=== PATIENT | male | born 1950 | race Caucasian/White ===

== ENCOUNTER 2020-06-25 17:29 | Outpatient (CLI) | payer OTHER | END 2020-06-25 17:30 | disposition home or self-care (01) | LOC: COV 17:29 | PROVIDERS: ATTEND Family Medicine | DX: R53.83 Other fatigue (principal); R19.7 Diarrhea, unspecified; R09.81 Nasal congestion; Z20.828 Contact with and (suspected) exposure to other viral communicable diseases ==

== ENCOUNTER 2020-10-16 13:25 | Emergency (ER) | payer OTHER ==
[2020-10-16 13:35] VITALS: BP 166/64
[2020-10-16] MEDS ORDERED: TETANUS/DIPHTHERIA/PERTUSSIS 0.5 ML SYRINGE IM ONE (14:27)
[2020-10-16] MEDS ORDERED: BACITRACIN ZINC OINT 1 PACKET TOP STA (14:37)
--- NOTE | 2020-10-16 14:37 | ED Physician Documentation ---
History of Present Illness - Stated complaint Stated Complaint: HEAD INJURY - Chief complaint Chief Complaint: Laceration - Additonal information Additional information: 69-year-old male who works for the [employer] [facility] presents the emergency department for a forehead laceration sustained earlier this afternoon when he was moving a ladder. He did not realize that there was a hammer on one of the steps. It fell down and struck him in the forehead. He did not have any loss of consciousness. He has a 2 cm vertical incision bleeding is well controlled. Unknown last tetanus. Gentleman is not anticoagulated. Review of Systems Constitutional: reports: Reviewed and negative Eyes: denies: Loss of vision, Decreased vision Ears: denies: Loss of hearing, Ear pain, Drainage/discharge Nose: denies: Rhinorrhea / runny nose, Congestion Throat: reports: Reviewed and negative Cardiac: reports: Reviewed and negative Respiratory: reports: Reviewed and negative GI: reports: Reviewed and negative : reports: Reviewed and negative Skin: reports: Laceration (s) (forehead) Musculoskeletal: reports: Reviewed and negative Neurologic: reports: Reviewed and negative Psychiatric: reports: Reviewed and negative PD PAST MEDICAL HISTORY - Past Medical History Cardiovascular: Hypertension Respiratory: None Endocrine/Autoimmune: None GI: None : None HEENT: None Psych: None Musculoskeletal: None Derm: None - Past Surgical History Past Surgical History: No - Present Medications Home Medications: Ambulatory Orders Medication Instructions Recorded Confirmed Lisinopril 20 mg PO DAILY 05/29/13 10/16/20 Felodipine [Felodipine ER] 10 mg PO DAILY 03/24/15 10/16/20 - Allergies Allergies/Adverse Reactions: Allergies Allergy/AdvReac Type Severity Reaction Status Date / Time No Known Drug Allergies Allergy Verified 10/16/20 13:32 - Social History Does the pt smoke?: No Smoking Status: Former smoker Does the pt drink ETOH?: Yes Does the pt have substance abuse?: No - Immunizations Immunizations are current?: Yes - POLST Patient has POLST: No PD ED PE EXPANDED - General General: Alert, No acute distress, Well developed/nourished - HEENT HEENT: Head injury, PERRL, Ears normal, Moist mucous membranes, Tongue laceration (Negative raccoon eyes negative martin sign), Other. No: Atraumatic - Eyes Eyes: PERRL - Neck Neck: Supple w/out meningeal sx. No: Adenopathy - Cardiac Cardiac: Regular Rate, Regular Rhythm, Radial strong equal, Pedal strong equal, Cap refill < 2 sec - Respiratory Respiratory: Clear to ausultation lazarus. No: Distress, Labored - Abdomen Abdomen: Normal Bowel sounds. No: Tender to palpation - Derm Derm: Normal color, Warm and dry - Extremities Extremities: Normal. No: Deformity, Tenderness - Neuro Neuro: Alert and Oriented X 3, CNII-XII intact, Normal gait, Normal finger nose, Normal speech. No: Confused, Disoriented - GCS Eye Opening: Spontaneous Motor: Obeys Commands Verbal: Oriented Total: 15 Results - Vitals Vitals: Vital Signs - 24 hr 10/16/20 13:33 Temperature 36.8 C Heart Rate 74 Respiratory 18 Rate Blood Pressure 166/64 H O2 Saturation 100 Oxygen O2 Source Room air Procedures - Laceration (location) forehead Length in cm: 2.5 Wound type: Linear Neurovascular status: Sensory intact Wound preparation: Irrigated copiously NS Skin layer closure: Kelly (4) Other: Patient tolerated well, No complications, Tetanus booster given PD MEDICAL DECISION MAKING - ED course Complexity details: d/w patient ED course: 69-year-old male presents emergency department for evaluation of forehead laceration sustained when a hammer fell off a ladder striking him in the head. There was no loss consciousness. Gentleman is not anticoagulated. He had a 2.5 cm vertical forehead incision that was easily closed with 4 kelly. Tetanus booster was given today. This gentleman does not have any secondary findings of a skull fracture including martin sign or raccoon eyes. Routine wound care emergent return precautions were discussed L&I ppw completed. [place] #[id number] Departure - Departure Disposition: 01 Home, Self Care Clinical Impression: Laceration of forehead without complication Qualifiers: Encounter type: initial encounter Qualified Code(s): S01.81XA - Laceration without foreign body of other part of head, initial encounter Condition: Stable Record reviewed to determine appropriate education?: Yes Comments: Your kelly should be removed in 5-7 days. In 24 hours you may remove the dressing wash gently with warm soap and water, apply any antibiotic ointment and a simple bandage. Your tetanus is up-to-date. Please attempt to keep your wound clean and dry. Do not submerge it in dirty dishwater or bath water. Return to the emergency department if you have any concerns of infection such as redness, fevers milky drainage increased pain.
== END 2020-10-16 14:44 | disposition home or self-care (01) ==
LOC: ED 13:25
DX: S01.81XA Laceration without foreign body of other part of head, initial encounter (principal); W20.8XXA Other cause of strike by thrown, projected or falling object, initial encounter; Y99.0 Civilian activity done for income or pay; I10 Essential (primary) hypertension; Z87.891 Personal history of nicotine dependence
CPT/HCPCS: 1040M; 12011; 99281; 99282

== ENCOUNTER 2020-11-07 08:00 | Outpatient (CLI) | payer OTHER ==
[2020-11-07 13:16] LABS: BASOPHILS % (AUTO) 0.6 %; EOSINOPHILS # (AUTO) 0.5 10^3/uL (0.0-0.7); EOSINOPHILS % (AUTO) 9.6 %; HCT - HEMATOCRIT 43.9 % (42.0-52.0); HGB - HEMOGLOBIN 14.5 g/dL (14.0-18.0); LYMPHOCYTES # (AUTO) 1.4 10^3/uL (1.5-3.5); LYMPHOCYTES % (AUTO) 27.6 %; MEAN CORPUSCULAR HEMOGLOBIN 31.6 pg (27.0-31.0); MEAN CORPUSCULAR VOLUME 95.6 fL (80.0-94.0); MONOCYTES # (AUTO) 0.5 10^3/uL (0.0-1.0); NEUTROPHILS # (AUTO) 2.5 10^3/uL (1.5-6.6); PLT - PLATELET COUNT 258 10^3/uL (130-450); RED BLOOD COUNT 4.59 10^6/uL (4.70-6.10); RED CELL DISTRIBUTION WIDTH 12.8 % (12.0-15.0); WHITE BLOOD COUNT 4.9 x10^3/uL (4.8-10.8)
[2020-11-07 13:25] LABS: ALBUMIN 4.2 g/dL (3.2-5.5); ALBUMIN/GLOBULIN RATIO 1.6 (1.0-2.2); ALKALINE PHOSPHATASE 35 IU/L (42-121); ALT ALANINE AMINOTRANSFERASE 22 IU/L (10-60); AST ASPARTATE AMINOTRANSFERASE 18 IU/L (10-42); BILIRUBIN,TOTAL 0.6 mg/dL (0.2-1.0); BUN - BLOOD UREA NITROGEN 19 mg/dL (6-20); CALCIUM 9.2 mg/dL (8.5-10.3); CARBON DIOXIDE - CO2 28 mmol/L (21-32); CHLORIDE 105 mmol/L (101-111); CHOLESTEROL 207 mg/dL; CREATININE 0.8 mg/dL (0.6-1.2); GFR - MDRD 96 (>89); GLUCOSE 109 mg/dL (70-100); HDL CHOLESTEROL 70 mg/dL; LDL CHOLESTEROL,CALCULATED 121 mg/dL; LDL/HDL RATIO 1.7 (<3.6); POTASSIUM 4.5 mmol/L (3.5-5.0); SODIUM 140 mmol/L (135-145); TOTAL PROTEIN 6.9 g/dL (6.7-8.2); TRIGLYCERIDES 81 mg/dL; VLDL CHOLESTEROL 16 mg/dL
== END 2020-11-07 23:59 | disposition home or self-care (01) ==
LOC: LAB.WCP 08:00
PROVIDERS: ATTEND Family Medicine
DX: I10 Essential (primary) hypertension (principal); Z12.5 Encounter for screening for malignant neoplasm of prostate
CPT/HCPCS: 36415; 80053; 80061; 83721; 84153; 85025

== ENCOUNTER 2022-07-30 12:39 | Outpatient (CLI) | payer OTHER | END 2022-07-30 12:40 | disposition home or self-care (01) | LOC: MAC.INF 12:39 | PROVIDERS: ATTEND Nurse Practitioner | DX: R00.2 Palpitations (principal); R07.9 Chest pain, unspecified | CPT/HCPCS: 93246 ==

== ENCOUNTER 2022-07-30 13:30 | Outpatient (CLI) | payer OTHER ==
--- NOTE | 2022-07-30 15:37 | XRAY Report ---
PROCEDURE: Chest 2 View X-Ray INDICATIONS: CHEST PAIN TECHNIQUE: 2 views of the chest were acquired. COMPARISON: 09/30/2015 FINDINGS: Surgical changes and devices: Device overlying the sternum. Lungs and pleura: No pleural effusions or pneumothorax. Lungs are clear. Mediastinum: Mediastinal contours are normal. Heart size is normal. Bones and chest wall: No suspicious bony abnormalities. Soft tissues appear unremarkable. IMPRESSION: No acute radiographic abnormality. Reviewed by: Hilton Zarate MD on 07/30/2022 3:35 PM PST Approved by: Hilton Zarate MD on 07/30/2022 3:35 PM PST Station ID: [id number]
== END 2022-07-30 13:31 | disposition home or self-care (01) ==
LOC: DI 13:30
PROVIDERS: ATTEND Nurse Practitioner
DX: R07.89 Other chest pain (principal); R07.9 Chest pain, unspecified

== ENCOUNTER 2022-09-11 08:51 | Outpatient (CLI) | payer OTHER ==
[2022-09-11 09:09] LABS: BASOPHILS % (AUTO) 0.5 %; EOSINOPHILS # (AUTO) 0.3 10^3/uL (0.0-0.7); HCT - HEMATOCRIT 45.6 % (42.0-52.0); HGB - HEMOGLOBIN 14.7 g/dL (14.0-18.0); LYMPHOCYTES # (AUTO) 1.6 10^3/uL (1.5-3.5); LYMPHOCYTES % (AUTO) 28.1 %; MEAN CORPUSCULAR HEMOGLOBIN 30.3 pg (27.0-31.0); MEAN CORPUSCULAR HGB CONC 32.2 g/dL (32.0-36.0); MONOCYTES # (AUTO) 0.6 10^3/uL (0.0-1.0); MONOCYTES % (AUTO) 11.4 %; NEUTROPHILS % (AUTO) 53.8 %; PLT - PLATELET COUNT 242 10^3/uL (130-450); RED BLOOD COUNT 4.85 10^6/uL (4.70-6.10); RED CELL DISTRIBUTION WIDTH 12.4 % (12.0-15.0); WHITE BLOOD COUNT 5.6 x10^3/uL (4.8-10.8)
[2022-09-11 09:13] LABS: FECAL OCCULT BLOOD (FIT) NEGATIVE (NEGATIVE)
[2022-09-11 09:33] LABS: ALBUMIN 4.1 g/dL (3.2-5.5); ALBUMIN/GLOBULIN RATIO 1.4 (1.0-2.2); ALKALINE PHOSPHATASE 37 IU/L (42-121); ALT ALANINE AMINOTRANSFERASE 29 IU/L (10-60); AST ASPARTATE AMINOTRANSFERASE 20 IU/L (10-42); BILIRUBIN,TOTAL 0.8 mg/dL (0.2-1.0); BUN - BLOOD UREA NITROGEN 13 mg/dL (6-20); CALCIUM 8.8 mg/dL (8.5-10.3); CARBON DIOXIDE - CO2 25 mmol/L (21-32); CHLORIDE 101 mmol/L (101-111); CHOL/HDL RATIO 3.6 (<5.0); CHOLESTEROL 204 mg/dL; CREATININE 0.9 mg/dL (0.6-1.2); GFR - MDRD 83 (>89); GLUCOSE 124 mg/dL (70-100); HDL CHOLESTEROL 56 mg/dL; LDL CHOLESTEROL,CALCULATED 130 mg/dL; LDL/HDL RATIO 2.3 (<3.6); POTASSIUM 4.5 mmol/L (3.5-5.0); SODIUM 133 mmol/L (135-145); TRIGLYCERIDES 92 mg/dL; VLDL CHOLESTEROL 18 mg/dL
[2022-09-11 09:44] LABS: THYROID STIMULATING HORMONE 1.38 uIU/mL (0.34-5.60)
== END 2022-09-11 08:52 | disposition home or self-care (01) ==
LOC: LAB 08:51
PROVIDERS: ATTEND Nurse Practitioner
DX: I10 Essential (primary) hypertension (principal); R00.2 Palpitations; Z13.220 Encounter for screening for lipoid disorders; Z12.11 Encounter for screening for malignant neoplasm of colon; Z12.5 Encounter for screening for malignant neoplasm of prostate
CPT/HCPCS: 36415; 80053; 80061; 82274; 83721; 84153; 84443; 85025

== ENCOUNTER 2022-09-14 08:59 | Outpatient (CLI) | payer OTHER ==
[2022-09-14 09:42] LABS: H. PYLORIS ANTIGEN STL NEGATIVE (Negative)
== END 2022-09-14 09:00 | disposition home or self-care (01) ==
LOC: LAB.R 08:59
PROVIDERS: ATTEND Nurse Practitioner
DX: Z86.19 Personal history of other infectious and parasitic diseases (principal)
CPT/HCPCS: 87338

== ENCOUNTER 2022-12-18 09:28 | Outpatient (CLI) | payer OTHER ==
--- NOTE | 2022-12-18 13:45 | MRI Report ---
PROCEDURE: LUMBAR SPINE WO INDICATIONS: LOW BACK PAIN TECHNIQUE: Noncontrast sagittal T1 spin echo and T2 fast echo, sagittal STIR, axial T1 and T2 fast spin echo thr ough the lumbar spine. In cases with scoliosis, additional coronal T2 fast spin echo may be performe d. COMPARISON: Correlation is made with abdomen pelvis CT, 03/24/2015 FINDINGS: Image quality: Diagnostic. Alignment and Curvature: There is minimal retrolisthesis seen at L1-2 and L2-L3. Minimal anterolisth esis is seen at L3-L4. Mild retrolisthesis can be seen at L4-L5 and at L5-S1. Minimal levoconvex lumb ar scoliotic curvature is seen. Bone Marrow: Marrow is of normal overall signal. No acute vertebral body compression fractures. Spinal Cord: Conus medullaris terminates at the L1 level. Visualized cord demonstrates normal signa l and size. Paraspinous Soft Tissues: No paravertebral masses. T12-L1: Normal in appearance. L1-L2: Moderate loss of disc height and signal are seen. Moderate disc osteophyte complex is seen, which is eccentric to the right. Bridging endplate osteophytes can be seen on the right, as on serie s 6 image 10. There is a right subarticular/right foraminal disc protrusion, as on series 8 image 3. Mild facet hypertrophy is seen. There is moderate left-sided and at least moderate right-sided neuro foraminal narrowing. There is a degree of compression seen upon the exiting right L1 nerve root. Mod erate central canal narrowing is seen. L2-L3: At least moderate loss of disc height and disc signal can be seen. Moderate to prominent di sc bulge is seen, which is eccentric to the right. Bridging endplate osteophytes are seen on the righ t, as on series 6 image 10. Moderate facet hypertrophy is seen at this level. Moderate to severe bila teral neural foraminal narrowing can be seen, with associated compression upon the exiting nerve root s. Moderate to severe central canal narrowing is seen. L3-L4: At least moderate loss of disc height and disc signal can be seen. Reactive marrow endplate changes are seen, which demonstrate mixed signal and are attributed to a combination of edema and fat ty metaplasia (Modic type I and Modic type II changes). At least moderate disc bulge is seen, which i s eccentric to the left. Partially bridging endplate osteophytes can be seen on the left, as on serie s 6 image 10. At least moderate facet hypertrophy is seen. There is moderate to severe left-sided and at least moderate right-sided neuroforaminal narrowing. Compression is seen upon the exiting nerve r oots. Moderate to severe central canal narrowing is seen, as on series 7 image 29. L4-L5: Moderate to severe loss of disc height and disc signal can be seen. Reactive marrow endplat e changes are seen, which are hyperintense on T1-weighted and T2-weighted imaging, without significan t increased STIR signal. These imaging findings are most consistent with fatty metaplasia (Modic type 2 change). At least moderate disc bulge is seen. A superimposed central disc protrusion is seen. Moderate facet hypertrophy is seen. Moderate to severe bilateral neural foraminal narrowing can be seen, with associated compression upon the exiting nerve roots. At least moderate central canal narr owing is seen at this level. L5-S1: At least moderate loss of disc height and disc signal can be seen at this level. At least mo derate disc bulge is seen. A superimposed central disc protrusion is seen. Moderate facet hypertroph y is seen. Moderate to severe bilateral neural foraminal narrowing can be seen, with associated compr ession upon the exiting nerve roots. Moderate central canal narrowing is seen. IMPRESSION: Multiple levels of significant lumbar spine degenerative change can be seen, which are overall worst inferiorly. Reviewed by: Jerrod Hunter MD on 12/18/2022 12:43 PM FADIA Approved by: Jerrod Hunter MD on 12/18/2022 12:43 PM FADIA Station ID: [id number]
== END 2022-12-18 09:29 | disposition home or self-care (01) ==
LOC: DI 09:28
PROVIDERS: ATTEND Nurse Practitioner
DX: M47.816 Spondylosis without myelopathy or radiculopathy, lumbar region (principal)

== ENCOUNTER 2023-01-21 14:57 | Outpatient (CLI) | payer OTHER | END 2023-01-21 14:58 | disposition home or self-care (01) | LOC: DI 14:57 | PROVIDERS: ATTEND Internal Medicine Cardiovascular Disease | DX: I47.29 Other ventricular tachycardia (principal); I51.7 Cardiomegaly; I77.810 Thoracic aortic ectasia | CPT/HCPCS: 93306 ==

== ENCOUNTER 2023-06-05 11:40 | Outpatient (CLI) | payer OTHER ==
[2023-06-05 12:20] LABS: CREATININE 0.8 mg/dL (0.6-1.3)
== END 2023-06-05 11:41 | disposition home or self-care (01) ==
LOC: LAB 11:40
PROVIDERS: ATTEND Internal Medicine Cardiovascular Disease
DX: I47.29 Other ventricular tachycardia (principal); R07.9 Chest pain, unspecified
CPT/HCPCS: 36415; 82565